=== PATIENT | male | born 1980 ===

== ENCOUNTER 2019-04-18 08:44 | Outpatient (REF) | payer MEDICAID, SELFPAY ==
[2019-04-18 19:58] LABS: Anion Gap 9.8 mmol/L (3-11); BUN 19 mg/dL (7-18); CO2 28.2 mmol/L (21.0-32.0); CREATININE 0.97 mg/dL (0.70-1.30); Calculated LDL 139 mg/dL (<100); Chloride 102 mmol/L (98-107); Cholesterol 211 mg/dL (<200); Glucose 109 mg/dL (74-106); HDL Cholesterol 32 mg/dL (40-60); Potassium 4.5 mmol/L (3.5-5.1); Sodium 140 mmol/L (136-145); TSH 1.13 uIU/mL (0.36-3.74); Triglyceride 202 mg/dL (<150)
== END 2019-04-18 09:04 ==
LOC: NCHCN 08:44
PROVIDERS: PCP Nurse Practitioner Family; Visit Provider Nurse Practitioner Family
DX: R63.5 Abnormal weight gain (principal); Z13.220 Encounter for screening for lipoid disorders
CPT/HCPCS: 80048; 80061; 84443